=== PATIENT | male | born 1965 | race African-American/Black ===

== ENCOUNTER 2018-11-04 20:33 | Observation (INO) | payer OTHER, MEDICAID ==
[2018-11-04 21:04] LABS: ADD MAN DIFF? NO
[2018-11-04] MEDS: KETOROLAC 15 MG INJ IV ×3 (21:05→21:27)
[2018-11-04] MEDS: LIDOCAINE/MYLANTA 40 ML BTL PO ×3 (21:05→21:28)
[2018-11-04] MEDS: SOD CHLORIDE 0.9% 1,000 ML IV (21:05)
[2018-11-04] MEDS: ONDANSETRON 4 MG INJ IV ×3 (21:05→21:27)
[2018-11-04] MEDS: BELLADONNA/PHENOBARBITAL TAB PO ×3 (21:05→21:27)
[2018-11-04 21:06] LABS: WHITE BLOOD COUNT 7.6 10^3/ul (4.8-10.8)
[2018-11-04 21:06] LABS: BASOPHIL # 0.1 10^3/ul (0.0-0.1); BASOPHILS % 1.1 % (0.0-2.0); EOSINOPHILS # 0.3 10^3/ul (0.0-0.5); EOSINOPHILS % 4.5 % (0.0-7.0); HEMATOCRIT 41.9 % (42.0-52.0); HEMOGLOBIN 12.9 g/dl (14.0-18.0); LYMPHOCYTES # 3.2 10^3/ul (0.8-2.9); LYMPHOCYTES % 41.4 % (15.0-51.0); MEAN CORPUSCULAR HEMOGLOBIN 27.3 pg (29.0-33.0); MEAN CORPUSCULAR HGB CONC 30.8 g/dl (32.0-37.0); MEAN CORPUSCULAR VOLUME 88.8 fl (82.0-101.0); MONOCYTE # 0.5 10^3/ul (0.3-0.9); MONOCYTES % 6.2 % (0.0-11.0); NEUTROPHIL # 3.6 10^3/ul (1.6-7.5); NEUTROPHILS % 46.5 % (39.0-77.0); PLATELET COUNT 310 10^3/UL (140-415); RED BLOOD COUNT 4.72 10^6/ul (4.70-6.10); RED CELL DISTRIBUTION WIDTH 14.1 % (11.5-14.5)
[2018-11-04] MEDS: SOD CHLORIDE 0.9% 500 ML IV (21:19)
[2018-11-04 21:27] LABS: INR 0.93; PARTIAL THROMBOPLASTIN TIME 35.4 Sec (23.0-35.0); PROTIME 12.6 Sec (11.9-14.9)
[2018-11-04] MEDS: ASPIRIN 81 MG TAB PO (21:27)
[2018-11-04] MEDS: ENALAPRILAT 1.25 MG INJ IV (21:27)
[2018-11-04 21:31] LABS: ALANINE AMINOTRANSFERASE 28 IU/L (13-69); ALBUMIN 3.2 g/dl (3.3-4.9); ALKALINE PHOSPHATASE 73 IU/L (42-121); ANION GAP 5 (5-13); ASPARTATE AMINO TRANSFERASE 22 IU/L (15-46); BILIRUBIN,INDIRECT 0.2 mg/dl (0-1.1); BILIRUBIN,TOTAL 0.2 mg/dl (0.2-1.3); BLOOD UREA NITROGEN 10 mg/dl (7-20); CALCIUM 7.1 mg/dl (8.4-10.2); CARBON DIOXIDE 20 mmol/L (21-31); CHLORIDE 114 mmol/L (97-110); CREATININE 0.65 mg/dl (0.61-1.24); Estimated GFR > 60 mL/min (>60); GLUCOSE 83 mg/dl (70-220); LIPASE 69 U/L (23-300); SODIUM 139 mmol/L (135-144); TOTAL PROTEIN 6.4 g/dl (6.1-8.1)
[2018-11-04] MEDS: POTASSIUM CHLORIDE (SR) 20 MEQ TAB PO (21:40)
[2018-11-04 21:42] LABS: TROPONIN-I < 0.012 ng/ml (0.000-0.120)
[2018-11-04] MEDS: NITROGLYCERIN (SL) 0.4 MG TAB SL (21:44)
[2018-11-04] MEDS ORDERED: NITROGLYCERIN (SL) 0.4 MG TAB SL (22:00)
[2018-11-04] MEDS ORDERED: BISACODYL (EC) 5 MG TAB PO (22:00)
[2018-11-04] MEDS ORDERED: DOCUSATE SODIUM 100 MG CAP PO (22:00)
[2018-11-04] MEDS ORDERED: ACETAMINOPHEN 325 MG TAB PO (22:00)
[2018-11-04] MEDS ORDERED: NACL 0.9% 3 ML SYG IV (22:00)
[2018-11-04] MEDS ORDERED: morphine 2 MG INJ IV (22:00)
[2018-11-04] MEDS ORDERED: ONDANSETRON 4 MG INJ IV (22:00)
[2018-11-05 03:47] LABS: ADD MAN DIFF? NO
[2018-11-05 04:04] LABS: WHITE BLOOD COUNT 6.4 10^3/ul (4.8-10.8)
[2018-11-05 04:04] LABS: BASOPHIL # 0.1 10^3/ul (0.0-0.1); BASOPHILS % 0.9 % (0.0-2.0); EOSINOPHILS # 0.3 10^3/ul (0.0-0.5); EOSINOPHILS % 4.7 % (0.0-7.0); HEMATOCRIT 39.7 % (42.0-52.0); HEMOGLOBIN 12.1 g/dl (14.0-18.0); LYMPHOCYTES # 2.6 10^3/ul (0.8-2.9); LYMPHOCYTES % 40.3 % (15.0-51.0); MEAN CORPUSCULAR HEMOGLOBIN 27.3 pg (29.0-33.0); MEAN CORPUSCULAR HGB CONC 30.5 g/dl (32.0-37.0); MEAN CORPUSCULAR VOLUME 89.6 fl (82.0-101.0); MEAN PLATELET VOLUME 10.3 fl (7.4-10.4); MONOCYTE # 0.4 10^3/ul (0.3-0.9); MONOCYTES % 6.3 % (0.0-11.0); NEUTROPHILS % 47.5 % (39.0-77.0); PLATELET COUNT 299 10^3/UL (140-415); RED BLOOD COUNT 4.43 10^6/ul (4.70-6.10); RED CELL DISTRIBUTION WIDTH 14.2 % (11.5-14.5)
[2018-11-05 04:07] LABS: CREATINE KINASE 103 IU/L (23-200)
[2018-11-05 04:11] LABS: ALANINE AMINOTRANSFERASE 25 IU/L (13-69); ALBUMIN 3.9 g/dl (3.3-4.9); ALBUMIN/GLOBULIN RATIO 1.18; ALKALINE PHOSPHATASE 84 IU/L (42-121); ANION GAP 3 (5-13); ASPARTATE AMINO TRANSFERASE 25 IU/L (15-46); BILIRUBIN,INDIRECT 0.3 mg/dl (0-1.1); BILIRUBIN,TOTAL 0.3 mg/dl (0.2-1.3); BLOOD UREA NITROGEN 11 mg/dl (7-20); CALCIUM 9.1 mg/dl (8.4-10.2); CARBON DIOXIDE 27 mmol/L (21-31); CHLORIDE 108 mmol/L (97-110); CHOL/HDL RATIO 7.2 RATIO; CHOLESTEROL 255 mg/dl (100-200); CREATININE 0.97 mg/dl (0.61-1.24); Estimated GFR > 60 mL/min (>60); GLUCOSE 101 mg/dl (70-220); HDL CHOLESTEROL 35 mg/dl (28-71); LDL CHOLESTEROL,CALCULATED 196 mg/dl; MAGNESIUM 2.3 mg/dl (1.7-2.5); POTASSIUM 4.3 mmol/L (3.5-5.1); SODIUM 138 mmol/L (135-144); TOTAL PROTEIN 7.2 g/dl (6.1-8.1); TRIGLYCERIDES 122 mg/dl (0-149)
[2018-11-05 04:20] LABS: CK INDEX 0.4; TROPONIN-I < 0.012 ng/ml (0.000-0.120)
[2018-11-05 04:55] LABS: HEMOGLOBIN A1C 5.5 % (0-5.9)
[2018-11-05] MEDS: ASPIRIN 81 MG TAB PO (08:35)
[2018-11-05 09:44] LABS: CREATINE KINASE 98 IU/L (23-200)
[2018-11-05 09:53] LABS: CK INDEX 0.3; CK-MB 0.31 ng/ml (0.0-2.4); TROPONIN-I < 0.012 ng/ml (0.000-0.120)
[2018-11-05] MEDS: ATORVASTATIN 40 MG TAB PO (20:37)
[2018-11-06 06:03] LABS: ADD MAN DIFF? NO
[2018-11-06 06:06] LABS: WHITE BLOOD COUNT 4.6 10^3/ul (4.8-10.8)
[2018-11-06 06:06] LABS: BASOPHIL # 0.1 10^3/ul (0.0-0.1); EOSINOPHILS # 0.3 10^3/ul (0.0-0.5); EOSINOPHILS % 5.7 % (0.0-7.0); HEMATOCRIT 41.1 % (42.0-52.0); HEMOGLOBIN 12.6 g/dl (14.0-18.0); LYMPHOCYTES # 1.8 10^3/ul (0.8-2.9); LYMPHOCYTES % 39.7 % (15.0-51.0); MEAN CORPUSCULAR HGB CONC 30.7 g/dl (32.0-37.0); MEAN PLATELET VOLUME 10.1 fl (7.4-10.4); MONOCYTE # 0.3 10^3/ul (0.3-0.9); MONOCYTES % 5.9 % (0.0-11.0); NEUTROPHIL # 2.1 10^3/ul (1.6-7.5); NEUTROPHILS % 46.5 % (39.0-77.0); PLATELET COUNT 282 10^3/UL (140-415); RED BLOOD COUNT 4.67 10^6/ul (4.70-6.10); RED CELL DISTRIBUTION WIDTH 14.2 % (11.5-14.5)
[2018-11-06 06:34] LABS: MAGNESIUM 2.3 mg/dl (1.7-2.5)
[2018-11-06 06:34] LABS: PHOSPHORUS 3.5 mg/dl (2.5-4.9)
[2018-11-06 06:37] LABS: ANION GAP 6 (5-13); BLOOD UREA NITROGEN 13 mg/dl (7-20); CALCIUM 9.4 mg/dl (8.4-10.2); CARBON DIOXIDE 26 mmol/L (21-31); CHLORIDE 106 mmol/L (97-110); CREATININE 0.94 mg/dl (0.61-1.24); Estimated GFR > 60 mL/min (>60); GLUCOSE 100 mg/dl (70-220); SODIUM 138 mmol/L (135-144)
[2018-11-06] MEDS: ASPIRIN 81 MG TAB PO (08:38)
[2018-11-06] MEDS: HYDROCHLOROTHIAZIDE 12.5 MG CAP PO (08:38)
[2018-11-06] MEDS: REGADENOSON 0.4 MG/5 ML SYG (12:43)
== END 2018-11-06 17:39 | disposition home or self-care (01) ==
LOC: 6WM 22:05 → E/R 20:33
DX: R07.89 Other chest pain (principal); I10 Essential (primary) hypertension; E66.9 Obesity, unspecified; Z68.30 Body mass index [BMI] 30.0-30.9, adult; E78.5 Hyperlipidemia, unspecified; Z79.82 Long term (current) use of aspirin
CPT/HCPCS: 36415; 71045; 78452; 80048; 80053; 80061; 82550; 82553; 83036; 83690; 83735; 84100; 84443; 84484; 85025; 85610; 85730; 93005; 93017; 93306; 96374; 96375; 99285-25; G0378